=== PATIENT | male | born 1995 | race African-American/Black ===

== ENCOUNTER 2019-06-30 22:26 | Emergency (ER) | payer SELFPAY ==
[~2019-06-30] VITALS: Ht 182.9 cm; Wt 79.5 kg
[2019-06-30 22:31] VITALS: TEMP 99.1
[2019-06-30 23:12] VITALS: BP 128/69; PULSE 76
== END 2019-06-30 23:16 | disposition home or self-care (01) ==
LOC: COL.ER 22:26
DX: S61.211A Laceration without foreign body of left index finger without damage to nail, initial encounter (principal); W26.0XXA Contact with knife, initial encounter; Y92.009 Unspecified place in unspecified non-institutional (private) residence as the place of occurrence of the external cause